=== PATIENT | female | born 1995 | race Asian ===

== ENCOUNTER 2020-11-05 14:56 | Emergency (ER) | payer BC ==
[~2020-11-05] VITALS: Ht 160 cm; Wt 46.0 kg
[2020-11-05] MEDS ORDERED: buspirone (15:01)
[2020-11-05] MEDS ORDERED: citalopram (15:01)
[2020-11-05] MEDS ORDERED: LORAZEPAM 1MG TABLET PO ONE (15:30)
[2020-11-05] MEDS ORDERED: LORA-249 MT (16:58)
[2020-11-05 17:03] VITALS: BP 127/87
== END 2020-11-05 17:05 | disposition home or self-care (01) ==
LOC: ER 14:56
DX: F41.9 Anxiety disorder, unspecified (principal)
CPT/HCPCS: 99283